=== PATIENT | male | born 1945 | race Caucasian/White ===

== ENCOUNTER 2017-03-22 09:34 | Inpatient (IN) | payer BC ==
[~2017-03-22] VITALS: Ht 182.9 cm; Wt 71.1 kg
[2017-03-25 06:54] VITALS: BP 119/61; PULSE 64; TEMP 97.3
[2017-03-25 06:57] VITALS: BP 119/61; PULSE 64; TEMP 97.3
[2017-03-25] MEDS ORDERED: VASOTEC 5MG5 MG/TAB PO (07:04)
[2017-03-25] MEDS ORDERED: ASPIRIN 81M81 MG/TA2 PO (07:05)
[2017-03-25] MEDS ORDERED: FLOMAX 0.40.4 MG/CAP PO (07:05)
[2017-03-25] MEDS ORDERED: ADVIL200 MG PO (07:06)
[2017-03-25] MEDS ORDERED: OCUVITE1 TA1 PO (07:07)
[2017-03-25] MEDS ORDERED: CIALIS20 MG PO (07:07)
[2017-03-25] MEDS ORDERED: EYE DROP ORIGIN15 ML OP (07:09)
[2017-03-25] MEDS ORDERED: DOXYCYCLINE 10100 MG PO (07:09)
[2017-03-25 15:06] LABS: BASO % 0.2 % (0.0-2.0); GRAN # 11.6 (1.4-6.5); GRAN % 94.2 % (42.2-75.2); HEMATOCRIT 38.5 % (42.0-52.0); HEMOGLOBIN 12.6 g/dl (13.5-18.0); LYMPH # 0.3 (1.2-3.4); LYMPH % 2.2 % (20.0-51.0); MEAN CELL VOLUME 90 fl (80.0-100.0); MEAN CORPUSCULAR HEMOGLOBIN 29 pg (27.0-31.0); MEAN CORPUSCULAR HGB CONC 33 g/dl (33.0-37.0); MEAN PLATELET VOLUME 8.7 fl (7.4-10.4); MONO # 0.4 (0.1-0.6); MONO % 3.2 % (1.7-9.3); PLATELET COUNT 278 K/mm3 (130-400); RED BLOOD COUNT 4.28 M/mm3 (4.20-5.60); REDCELL DISTRIBUTION WIDTH-CV 11.9 % (11.5-14.5)
[2017-03-25 15:16] LABS: ALBUMIN 3.8 gm/dL (3.5-5.0); BILIRUBIN,TOTAL 0.3 mg/dL (0.0-1.0); CREATININE, serum 1.11 mg/dL (0.66-1.25); POTASSIUM 4.4 mmol/L (3.4-5.0)
[2017-03-25 15:27] LABS: CALCIUM 9.1 mg/dL (8.4-10.2)
[2017-03-25 22:00] VITALS: BP 125/99; PULSE 72; TEMP 98.3
[2017-03-26 00:59] VITALS: BP 122/68; PULSE 57; TEMP 98.4
[2017-03-26 04:00] VITALS: BP 127/68; PULSE 50; TEMP 97.7
[2017-03-26 07:50] LABS: BASO % 0.2 % (0.0-2.0); GRAN % 82.7 % (42.2-75.2); LYMPH % 7.5 % (20.0-51.0); MEAN CELL VOLUME 91 fl (80.0-100.0); MEAN CORPUSCULAR HGB CONC 33 g/dl (33.0-37.0); MEAN PLATELET VOLUME 9.2 fl (7.4-10.4); MONO # 1.2 (0.1-0.6); MONO % 9.2 % (1.7-9.3); PLATELET COUNT 323 K/mm3 (130-400); RED BLOOD COUNT 3.93 M/mm3 (4.20-5.60); REDCELL DISTRIBUTION WIDTH-CV 11.9 % (11.5-14.5)
[2017-03-26 08:00] VITALS: BP 146/72; PULSE 56; TEMP 97.5
[2017-03-26 08:01] LABS: CREATININE, serum 1.21 mg/dL (0.66-1.25); POTASSIUM 4.7 mmol/L (3.4-5.0)
[2017-03-26 08:03] LABS: HEMATOCRIT 35.9 % (42.0-52.0); HEMOGLOBIN 11.7 g/dl (13.5-18.0); MEAN CORPUSCULAR HEMOGLOBIN 30 pg (27.0-31.0)
[2017-03-26 12:00] VITALS: BP 141/66; PULSE 62; TEMP 97.3
[2017-03-26 17:53] VITALS: BP 135/66; PULSE 69; TEMP 97
[2017-03-26 21:35] VITALS: BP 150/71; PULSE 75; TEMP 98.5
[2017-03-27 02:41] VITALS: BP 135/55; PULSE 73; TEMP 98.7
[2017-03-27 05:44] VITALS: BP 131/69; PULSE 64; TEMP 98.9
[2017-03-27 10:13] VITALS: BP 128/63; PULSE 76; TEMP 98.7
[2017-03-27] MEDS ORDERED: NORCO 325 MG-51 TAB PO (14:08)
[2017-03-27] MEDS ORDERED: COLACE 100100 MG/CAP PO (14:09)
== END 2017-03-27 16:15 | disposition home or self-care (01) | DRG 661 ==
LOC: INPTSU 03-25 06:03 → SURG 03-25 08:00
PROVIDERS: Urology
PROC: 0TT04ZZ Resection of Right Kidney, Percutaneous Endoscopic Approach (ICD-10-PCS; principal; 2017-03-25 08:00)
DX: N28.89 Other specified disorders of kidney and ureter (principal); I10 Essential (primary) hypertension; E11.9 Type 2 diabetes mellitus without complications; Z85.46 Personal history of malignant neoplasm of prostate
CPT/HCPCS: A4314; A9284; J0690; J1100; J1650; J2250; J2270; J2405; J2704; J2795; J3010; J3480; J7030

== ENCOUNTER → 2017-08-15 | Outpatient (CLI) | payer BC ==
[~2017-08-15] MED LIST: ADVIL200 MG PO; ASPIRIN 81M81 MG/TA2 PO; CIALIS20 MG PO; COLACE 100100 MG/CAP PO; DOXYCYCLINE 10100 MG PO; EYE DROP ORIGIN15 ML OP; FLOMAX 0.40.4 MG/CAP PO; NORCO 325 MG-51 TAB PO; OCUVITE1 TA1 PO; VASOTEC 5MG5 MG/TAB PO
== END ==
LOC: COL.RAD 11:34
DX: N45.1 Epididymitis (principal); N43.2 Other hydrocele

== ENCOUNTER → 2017-10-13 | Outpatient (CLI) | payer BC | LOC: COL.RAD 11:08 | DX: N43.0 Encysted hydrocele (principal) ==

== ENCOUNTER → 2017-12-22 | Outpatient (CLI) | payer BC | LOC: COL.RAD 09:56 | DX: C64.1 Malignant neoplasm of right kidney, except renal pelvis (principal); C78.00 Secondary malignant neoplasm of unspecified lung; K57.30 Diverticulosis of large intestine without perforation or abscess without bleeding; N28.89 Other specified disorders of kidney and ureter; R59.0 Localized enlarged lymph nodes; Z90.5 Acquired absence of kidney | CPT/HCPCS: A9503; Q9967 ==

== ENCOUNTER 2018-08-31 19:12 | Emergency (ER) | payer MEDICARE, BC ==
[~2018-08-31] VITALS: Ht 182.9 cm; Wt 59.1 kg
[2018-08-31 19:26] VITALS: BP 131/67; TEMP 97.7
[2018-08-31 19:45] LABS: BASO # 0.1 (0.0-0.2); BASO % 0.4 % (0.0-2.0); EOS % 0.2 % (0-4.0); GRAN # 9.2 (1.4-6.5); GRAN % 79.9 % (42.2-75.2); LYMPH # 0.9 (1.2-3.4); MEAN CELL VOLUME 90 fl (80.0-100.0); MEAN CORPUSCULAR HGB CONC 32 g/dl (33.0-37.0); MEAN PLATELET VOLUME 7.6 fl (7.4-10.4); MONO # 1.2 (0.1-0.6); MONO % 10.7 % (1.7-9.3); PLATELET COUNT 627 K/mm3 (130-400); RED BLOOD COUNT 3.11 M/mm3 (4.20-5.60); REDCELL DISTRIBUTION WIDTH-CV 13.9 % (11.5-14.5)
[2018-08-31 19:53] LABS: MEAN CORPUSCULAR HEMOGLOBIN 29 pg (27.0-31.0)
[2018-08-31 20:01] LABS: ALANINE AMINOTRANSFERASE 23 U/L (21-72); ANION GAP 12 mmol/L (7-16); AST,SGOT 23 U/L (15-37); BILIRUBIN,TOTAL 0.5 mg/dL (0.0-1.0); BLOOD UREA NITROGEN 17 mg/dL (9-20); CALCIUM 10.9 mg/dL (8.4-10.2); CARBON DIOXIDE 24 mmol/L (22-30); CHLORIDE 94 mmol/L (98-107); CREATININE, serum 0.92 (0.66-1.25); GLUCOSE 120 mg/dL (74-106); LIPASE < 10 U/L (23-300); POTASSIUM 4.6 mmol/L (3.4-5.0); SODIUM 130 mmol/L (137-145)
[2018-08-31 20:13] LABS: ALKALINE PHOSPHATASE 1189 U/L (50-136)
[2018-08-31 20:40] LABS: C-REACTIVE PROTEIN 43.4 mg/dL (0.0-0.9)
[2018-08-31 22:00] VITALS: PULSE 80
== END 2018-08-31 22:00 | disposition other institution (70) ==
LOC: COL.ER 19:12
PROVIDERS: Family Medicine
DX: C71.9 Malignant neoplasm of brain, unspecified (principal); Z85.528 Personal history of other malignant neoplasm of kidney; Z79.82 Long term (current) use of aspirin
CPT/HCPCS: J1100; J1200; J1630; J2405; J3010; J7030

== ENCOUNTER 2018-10-04 08:31 | Outpatient (RCR) | payer MEDICARE, BC ==
[~2018-10-04] VITALS: Ht 182.9 cm; Wt 48.0 kg
[2018-10-04] VITALS (9 sets, daily range): BP systolic 92–121; BP diastolic 53–63; PULSE 68–79; TEMP 97.3–98.3
[2018-10-04] MEDS ORDERED: TYLENOL PM EXTR1 TA1 PO (09:47)
[2018-10-04] MEDS ORDERED: KEYTRUDA25 MG/ML IV (09:49)
--- NOTE | 2018-10-04 15:00 | NUR ---
Pt palmira blood tx well. Pt discharged per w/c by .
== END 2018-10-04 16:07 | disposition home or self-care (01) ==
LOC: EUO 08:31
DX: C64.1 Malignant neoplasm of right kidney, except renal pelvis (principal)
CPT/HCPCS: J7050; P9016